=== PATIENT | male | born 1945 | race Caucasian/White ===

== ENCOUNTER 2022-03-19 15:06 | Emergency (ER) | payer MEDICARE, BC, SELFPAY ==
[2022-03-19 15:36] VITALS: BP 123/63; PULSE 45; RESP 18; TEMP 36.5; BMI 25.8
[2022-03-19] MEDS: TETANUS/DIPHTH/PERTUSSIS 0.5 ML SYRINGE IM (16:39)
--- NOTE | 2022-03-19 16:48 | ED.GENADULT ---
HPI - General Adult General Date Seen: 03/19/22 Chief complaint: Laceration/Wound Stated complaint: L thumb laceration Time Seen by Provider: 03/19/22 16:15 Source: patient History of Present Illness HPI narrative: Patient is a 77-year-old male who presents with right thumb laceration. He was using a box toe cutter and cut the dorsal surface of his thumb. No complaints of numbness or loss of function. Last tetanus unknown. He could not get the bleeding to stop which is what prompted him to come in. He does take Eliquis for atrial fibrillation. Related Data Home Medications Medication Instructions Recorded Confirmed apixaban 5 mg tablet (Eliquis) mg 03/19/22 rosuvastatin 40 mg tablet mg 03/19/22 sotalol 80 mg tablet mg 03/19/22 Allergies Allergy/AdvReac Type Severity Reaction Status Date / Time No Known Drug Allergies Allergy Verified 03/19/22 15:36 PFSH PFS Medical History Atrial fibrillation Hyperlipidemia Family History Father Pancreatic cancer Sister Melanoma Social History Smoking Status: Never smoker Do you use any of these nicotine containing products: None How often do you have a drink containing alcohol: 2-3 times a week How many standard drinks containing alcohol do you have on a typical day: 3 or 4 How often do you have six or more drinks on one occasion: Never AUDIT-C Alcohol total score: 4 Non-prescribed substance use: denies use service: Yes Exam Narrative: Exam Narrative: Vital signs reviewed. In general, alert, well-appearing elderly male. Examination of the right thumb shows a 1 cm laceration across the dorsum of the thumb between the PIP and PIP joints. This extends just into the dermis. Bleeding is controlled. He has full flexion extension at the D IP joint and PIP joint. Distal sensation is intact. Skin: Warm dry well perfused. Const: Vital Signs, click to edit/add: Vital Signs - 24 hr 03/19/22 15:36 Temperature 97.7 F Pulse Rate [Right Pulse Oximeter] 45 L Respiratory Rate 18 Blood Pressure [Ri ght Upper Arm] 123/63 Documenting provider has reviewed patient's vital signs: yes Course Course Hospital Course: Procedure note: The wound was anesthetized using lidocaine with epinephrine. Clean. No evidence of foreign body or injury to deeper structures. I closed using 5 0 nylon, a total of 3 simple interrupted superficial sutures were placed. He tolerated this well without immediate complication. A dressing is applied by the nurse. Recommend suture removal in about 7 days, he tells me he will do this himself as he has done that before. Return for signs of infection. Tetanus was updated today. note the patient is bradycardic, he says that this is longstanding issue for him related to the medications he takes for his atrial fibrillation. He is asymptomatic. Vital Signs Vital signs: Initial Vital Signs Temperature 97.7 F 03/19/22 15:36 Temperature Source Temporal Artery Scan 03/19/22 15:36 Pulse Rate 45 L 03/19/22 15:36 Respiratory Rate 18 03/19/22 15:36 Blood Pressure 123/63 03/19/22 15:36 Blood Pressure Mean 83 03/19/22 15:36 Blood Pressure Position Sitting 03/19/22 15:36 Oxygen Delivery Method 03/19/22 15:36 Vital Signs Temperature 97.7 F 03/19/22 15:36 Pulse Rate 45 L 03/19/22 15:36 Respiratory Rate 18 03/19/22 15:36 Blood Pressure 123/63 03/19/22 15:36 Temperature 97.7 F 03/19/22 15:36 Pulse Rate 45 L 03/19/22 15:36 Respiratory Rate 18 03/19/22 15:36 Blood Pressure 123/63 03/19/22 15:36 Discharge Plan Discharge Clinical Impression: Laceration of thumb Patient Disposition: Home, Self-Care Condition: Improved Additional Instructions: Routine wound care. Return for signs of infection. Suture removal in about 7 days. Prescriptions: No Action sotalol 80 mg tablet 0RF Label Comments: PLEASE SEE ATTACHED FOR DETAILED DIRECTIONS rosuvastatin 40 mg tablet 0RF Label Comments: TAKE 1 TABLET BY MOUTH AT BEDTIME Eliquis 5 mg tablet 0RF Label Comments: TAKE 1 TABLET BY MOUTH TWICE A DAY Follow Up/Referrals: Dario Sotelo MD [Primary Care Provider] - Stand Alone Forms: [facility] Inst[facility]
== END 2022-03-19 17:21 | disposition home or self-care (01) ==
PROVIDERS: Emergency Provider Emergency Medicine; PCP Family Medicine
DX: S61.011A Laceration without foreign body of right thumb without damage to nail, initial encounter (principal); W26.0XXA Contact with knife, initial encounter
CPT/HCPCS: 12001; 99283

== ENCOUNTER 2024-02-09 11:00 | Outpatient (RCR) | payer MEDICARE, BC, SELFPAY | END 2024-06-08 23:59 | disposition home or self-care (01) | PROVIDERS: Visit Provider Physician Assistant Surgical | DX: N39.3 Stress incontinence (female) (male) (principal); Z51.89 Encounter for other specified aftercare | CPT/HCPCS: 97110; 97162; 97535 ==

== ENCOUNTER 2024-05-06 06:40 | Day surgery (SDC) | payer MEDICARE, BC, SELFPAY ==
[2024-05-05] MEDS: LACTATED RINGERS 1000 ML 1,000 ML 100 ML IV (07:30)
[2024-05-06] VITALS (14 sets, daily range): BP systolic 138–181; BP diastolic 76–94; PULSE 53–67; RESP 12–20; TEMP 36–36.6; O2SAT 94–99
[2024-05-06] MEDS: SODIUM CHLORIDE 0.9 % (FLUSH) 10 ML SYRINGE IVF (07:30)
--- NOTE | 2024-05-06 08:22 | W.PM.H&PU ---
History & Physical Update History & Physical Update H&P Reviewed and patient assessed: No changes noted
[2024-05-06] MEDS: CEFAZOLIN 1 GM inj IVP (08:26)
[2024-05-06] MEDS: LACTATED RINGERS 1000 ML 1,000 ML 100 ML IV (08:34)
--- NOTE | 2024-05-06 08:50 | W.ANESCHARGE ---
Anesthesia Charges Start Date/Time Anesthesia Start Date: 05/06/24 Anesthesia Start Time: 08:14 Stop Date/Time Anesthesia Stop Date: 05/06/24 Anesthesia Stop Time: 10:02 Summary Extremes of Age - Over 70 or under 1: MDA
[2024-05-06] MEDS: BUPIVACAINE LIPOSOME 133 MG/10 ML INJ INFILTRATI (09:03)
[2024-05-06] MEDS: BUPIVACAINE 0.25% 30 ML INJECTION (09:03)
--- NOTE | 2024-05-06 09:54 | PM.GSPRC ---
Operative Note Date of procedure: 05/06/24 Pre-op diagnosis: Incisional hernia Post-op diagnosis: same Type of Procedure: Open repair 4 cm incisional abdominal wall hernia Indications: The patient is a 79-year-old male who developed a hernia at the site an incision from prostatectomy last year. It has been interfering in his active lifestyle and therefore after discussion of options he elected to proceed with repair. Procedure Description: After discussing the risks and benefits of the procedure, the patient signed informed consent.? The operative site was marked and the patient was brought to the operating room and placed on the operating table in supine position.? Care was taken to pad the patient's pressure points.?? The patient was then intubated by anesthesia.?? The operative site was then prepped and draped in the usual sterile fashion.? A time-out was then performed. Incision was created at the site of the patient's prior supraumbilical incision. Dissection was carried down into the subcutaneous tissue using cautery. The hernia sac was encountered and care was taken to not enter it. Dissection was taken down to the fascia on 1 side and continued around the base of the hernia. This was noted to be fairly broad, extending to the right of midline. Once the fascial edges were cleared, I did open the hernia sac to ensure there was no bowel stuck to the peritoneal surface prior to creating a preperitoneal space for mesh placement. There was no bowel adherent. I then created a preperitoneal space extending 5 cm from the fascial edge circumferentially. The fascial defect was measured. This was 2 x 4 cm wide. I chose a piece of Ventrio ST mesh, 8 x 12 cm. This would allow sufficient overlap under the fascial edges. This was placed in the preperitoneal space and was found to lay nicely. I then secured the mesh circumferentially with interrupted 2 0 PDS suture. In order to place the sutures at the edge of the mesh, I used cautery to create small pockets in the subcutaneous space above the fascia in each position that I wished to secure the mesh to the fascia. Once this was done, the mesh was examined. It laid flat against the posterior rectus sheath. I then closed the fascial opening with running 1. PDS suture. At this point, Afro mixed with 0.25% Marcaine was injected into the fascia and subcutaneous tissue around the wound. The skin was then closed with 3-0 Vicryl dermal and 4-0 Monocryl running subcuticular suture. Glue was then applied. The patient was then woken and transported to the recovery area in stable condition. ? The patient tolerated the procedure well. Findings: 2 x 4 cm reducible incisional hernia. Implants: Ventrio ST mesh, 8 x 12 cm Anesthesia: GETA Surgeon: Ankita Bass MD Estimated blood loss (mL): 5 Condition: stable Disposition: PACU
--- NOTE | 2024-05-06 10:07 | P.ANES_ITS ---
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
[2024-05-06] MEDS: HYDROCODONE-ACETAMIN 5-325 MG 1 TAB PO (11:06)
== END 2024-05-06 12:07 | disposition home or self-care (01) ==
PROVIDERS: Visit Provider Surgery
PROC: (CPT 49593; principal; 2024-05-06 08:00)
DX: K43.2 Incisional hernia without obstruction or gangrene (principal)
CPT/HCPCS: 49593; 00752; 99100; A9270; C1781; C9290; J0330; J0665; J0690; J1100; J1170; J2405; J2704; J3010; J7120